=== PATIENT | male | born 1955 | race American Indian/Alaskan Native ===

== ENCOUNTER 2020-10-31 03:04 | Emergency (ER) | payer SELFPAY ==
--- NOTE | 2020-10-31 03:59 | Event Note ---
ED Screening Note Date of service: 10/31/20 Time: 03:57 ED Screening Note: Patient is a 64-year-old -[place] male with a history of hypertension who presents to the ED with complaint of persistent shortness of breath on exertion and orthopnea for the last 1 week. Patient also complains of worsening bilateral lower extremity and abdominal swelling for over 6 months. Patient denies chest pain, fever, chills, nausea, vomiting, traumatic injury, dizziness, cough, back pain, numbness and tingling or weakness of upper and lower extremities bilaterally, change in vision or headache. This initial assessment/diagnostic orders/clinical plan/treatment(s) is/are subject to change based on patients health status, clinical progression and re- assessment by fellow clinical providers in the ED. Further treatment and workup at subsequent clinical providers discretion. Patient/guardian urged not to elope from the ED as their condition may be serious if not clinically assessed and managed. Initial orders include: CBC, CMP, PT/INR, PTT, BNP, troponins, chest x-ray, EKG
[2020-10-31 04:18] LABS: Hematocrit 31.3 % (35.5-45.6); Hemoglobin 10.5 gm/dl (11.8-15.2); Mean Corpuscular HGB Conc 34 % (32-34); Mean Corpuscular Volume 87 fl (84-94); Platelet Count 318 K/mm3 (140-440); Red Blood Count 3.59 M/mm3 (3.65-5.03); Red Cell Distribution Width 17.3 % (13.2-15.2)
--- NOTE | 2020-10-31 04:25 | XRay Report ---
CHEST 1 VIEW 4:16 AM INDICATION / CLINICAL INFORMATION: Shortness of breath and bilateral leg swelling. COMPARISON: None available. FINDINGS: SUPPORT DEVICES: None. HEART / MEDIASTINUM: The heart size and pulmonary vasculature are normal. LUNGS / PLEURA: No significant pulmonary or pleural abnormality. No pneumothorax. ADDITIONAL FINDINGS: No significant additional findings. IMPRESSION: No acute findings. Signer Name: Ahmet Royal MD Signed: 10/31/2020 4:20 AM Workstation Name: [id number]
[2020-10-31 04:30] LABS: INR 1.11 (0.87-1.13)
[2020-10-31 04:31] LABS: Partial Thromboplastin Time 31.4 Sec. (24.2-36.6)
[2020-10-31 04:42] LABS: Alanine Aminotransferase 24 units/L (7-56); Albumin 2.8 g/dL (3.9-5); BUN/Creatinine Ratio 10; Blood Urea Nitrogen 11 mg/dL (9-20); Hemolysis Index 4
[2020-10-31 05:02] LABS: Anisocytosis 1+; Total Cells Counted 100
[2020-10-31 05:03] LABS: Platelet Estimate Consistent w Auto
[2020-10-31] MEDS ORDERED: diphenhydrAMINE 25 MG CAP PO ONE (06:20)
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
[2020-10-31 06:52] VITALS: BP 124/65
== END 2020-10-31 10:05 | disposition home or self-care (01) ==
LOC: ED 03:04
DX: R06.02 Shortness of breath (principal); L29.9 Pruritus, unspecified; I10 Essential (primary) hypertension
CPT/HCPCS: 36415; 71045; 80053; 83880; 84484; 85007; 85025; 85610; 85730; 93005

== ENCOUNTER 2021-06-17 01:12 | Emergency (ER) | payer MEDICARE ==
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
[2021-06-17 02:35] LABS: Hematocrit 29.2 % (35.5-45.6); Hemoglobin 9.5 gm/dl (11.8-15.2); Mean Corpuscular HGB Conc 32 % (32-34); Mean Corpuscular Volume 81 fl (84-94); Platelet Count 381 K/mm3 (140-440); Red Cell Distribution Width 16.3 % (13.2-15.2)
[2021-06-17 03:15] LABS: Alanine Aminotransferase 6 units/L (7-56); Albumin 2.8 g/dL (3.9-5); BUN/Creatinine Ratio 14; Blood Urea Nitrogen 14 mg/dL (9-20); Calcium 7.8 mg/dL (8.4-10.2); Hemolysis Index 0
[2021-06-17 03:41] VITALS: BP 128/87
== END 2021-06-17 04:07 | disposition home or self-care (01) ==
LOC: ED 01:12
DX: R60.0 Localized edema (principal); I10 Essential (primary) hypertension; Z98.890 Other specified postprocedural states; Z87.891 Personal history of nicotine dependence
CPT/HCPCS: 36415; 80053; 85027; 99283